=== PATIENT | female | born 1950 | race Caucasian/White ===

== ENCOUNTER → 2017-12-27 | Outpatient (CLI) | payer MEDICARE, OTHER ==
[~2017-12-27] VITALS: Ht 170.2 cm; Wt 106.6 kg
== END | disposition home or self-care (01) ==
LOC: Rad HDHVI 09:29
PROVIDERS: ATTEND Internal Medicine Cardiovascular Disease
DX: Z01.810 Encounter for preprocedural cardiovascular examination (principal); I10 Essential (primary) hypertension; E11.9 Type 2 diabetes mellitus without complications; K80.20 Calculus of gallbladder without cholecystitis without obstruction; R06.02 Shortness of breath; E78.5 Hyperlipidemia, unspecified
CPT/HCPCS: 78452; 93017; 93306; 96374; A9500